=== PATIENT | female | born 1935 | race Caucasian/White ===

== ENCOUNTER 2017-02-03 19:46 | Inpatient (IN) | payer MEDICARE, MEDICAID ==
--- NOTE | 2017-02-03 21:30 | ED.PDOC ---
History of Present Illness - General Chief Complaint: Problem Stated Complaint: UTI Time Seen by Provider: 02/03/17 20:06 Source: patient, RN notes reviewed, Vital Signs reviewed Exam Limitations: no limitations - History of Present Illness Timing/Duration: 24 hours Severity: moderate Improving Factors: nothing Worsening Factors: nothing Associated Symptoms: fever/chills - pt reports recently treated for uti. states that feels similar and has frequency. has had decrease urine output, loss of appetite, malaise, nausea/vomiting Allergies/Adverse Reactions: Allergies NO KNOWN ALLERGY Allergy (Verified 02/03/17 20:44) Review of Systems - Review of Systems Constitutional: States: chills, malaise EENTM: Denies: ear pain, nose pain, throat pain, mouth pain Respiratory: Denies: cough, short of breath, wheezing Cardiology: Denies: chest pain, edema, palpitations, syncope Gastrointestinal/Abdominal: States: abdominal pain, nausea. Denies: constipation, diarrhea Genitourinary: States: dysuria, frequency, pain Musculoskeletal: Denies: joint pain, joint swelling, muscle pain, muscle stiffness Skin: Denies: no symptoms reported Neurological: Denies: no symptoms reported Endocrine: Denies: no symptoms reported Hematologic/Lymphatic: Denies: no symptoms reported Past Medical History (General) - Patient Medical History Hx Seizures: No Hx Stroke: Yes Hx Dementia: No Hx Asthma: Yes Hx of COPD: No Hx Cardiac Disorders: Yes Hx Congestive Heart Failure: Yes Hx Pacemaker: No Hx Hypertension: Yes Hx Thyroid Disease: No Hx Diabetes: Yes Hx Gastroesophageal Reflux: Yes Hx Renal Disease: No Hx Cancer: Yes Hx of HIV: No Hx Hepatitis C: No Hx MRSA: No Surgical History: Hysterectomy - Vaccination History Hx Tetanus, Diphtheria Vaccination: No Hx Influenza Vaccination: No Hx Pneumococcal Vaccination: No - Social History Hx Tobacco Use: No Hx Alcohol Use: No Hx Substance Use: No Hx Substance Use Treatment: No Hx Depression: No - Activities of Daily Living Half-Way/Assisted Living (if applicable):: [facility] (if applicable):: None - Female History Patient is a Female of Child Bearing Age (10 -59 yrs old): No Hx Last Menstrual Period: 02/03/17 - Triage Comment ED Triage Comment: Presents to ER via [facility] from [facility]--c/o dysuria at home Family Medical History - Family History Mother Living Status: Physical Exam - Physical Exam General Appearance: Alert, Anxious Ears, Nose, Throat: hearing grossly normal, other - dry membranes Neck: non-tender, full range of motion, supple Respiratory: chest non-tender, lungs clear, normal breath sounds, no respiratory distress, no accessory muscle use Cardiovascular/Chest: normal peripheral pulses, regular rate, rhythm Gastrointestinal/Abdominal: normal bowel sounds, non tender, soft Back Exam: normal inspection Extremity: normal range of motion, non-tender Neurologic: no motor/sensory deficits, alert Skin Exam: other - poor skin turgur, pallor Lymphatic: no adenopathy Progress - Progress Progress: 02/03/17 21:38 02/03/17 20:50 URINALYSIS Stat Laboratory Results WBC 6.1 K/mm3 (4.8-10.8) 02/03/17 21:02 RBC 3.95 M/mm3 (4.20-5.40) L 02/03/17 21:02 Hgb 12.7 gm/dL (12.0-16.0) 02/03/17 21:02 Hct 38.2 % (36.0-47.0) 02/03/17 21:02 MCV 96.7 fl (81.0-99.0) 02/03/17 21: MCH 32.1 pg (27.0-31.0) H 02/03/17 21:02 MCHC 33.2 g/dL (33.0-37.0) 02/03/17 21:02 RDW 14.1 % (11.5-14.5) 02/03/17 21:02 Plt Count 190 K/mm3 (130-400) 02/03/17 21:02 MPV 8.0 fl (7.40-10.4) 02/03/17 21:02 Absolute Neuts (auto) 3.40 K/uL (1.8-6.8) 02/03/17 21:02 Absolute Lymphs (auto) 1.70 K/uL (1.0-3.4) 02/03/17 21: Absolute Monos (auto) 0.80 K/uL (0.2-0.8) 02/03/17 21: Absolute Eos (auto) 0.20 K/uL (0.0-0.4) 02/03/17 21:02 Absolute Basos (auto) 0.00 K/uL (0.0-0.1) 02/03/17 21:02 Neutrophils % 55.3 % (42.0-78.0) 02/03/17 21:02 Lymphocytes % 28.6 % (20.0-50.0) 02/03/17 21: Monocytes % 12.8 % (2.0-9.0) H 02/03/17 21:02 Eosinophils % 2.6 % (1.0-5.0) 02/03/17 21: Basophils % 0.7 % (0.0-2.0) 02/03/17 21:02 Sodium 132 mmol/L (135-145) L 02/03/17 21:02 Potassium 5.1 mmol/L (3.6-5.0) H 02/03/17 21:02 Chloride 94 mmol/L (101-111) L 02/03/17 21:02 Carbon Dioxide 30 mmol/L (21-31) 02/03/17 21:02 Anion Gap 13.1 (12-18) 02/03/17 21:02 BUN 50 mg/dL (7-18) H 02/03/17 21:02 Creatinine 2.68 mg/dL (0.6-1.3) H 02/03/17 21:02 BUN/Creatinine Ratio 18.7 (10-20) 02/03/17 21:02 Random Glucose 131 mg/dL (70-105) H 02/03/17 21:02 Serum Osmolality 279.7 mOsm/L (275-295) 02/03/17 21:02 Calcium 8.7 mg/dL (8.4-10.2) 02/03/17 21:02 Total Bilirubin 0.3 mg/dL (0.2-1.0) 02/03/17 21:02 AST 18 IU/L (10-42) 02/03/17 21:02 ALT 17 IU/L (10-60) 02/03/17 21:02 Alkaline Phosphatase 82 IU/L (42-121) 02/03/17 21:02 Troponin I 0.04 ng/mL (0.01-0.05) 02/03/17 21: Serum Total Protein 8.0 gm/dL (6.4-8.2) 02/03/17 21:02 Albumin 3.5 g/dl (3.2-5.5) 02/03/17 21:02 Globulin 4.5 gm/dL (2.3-3.5) H 02/03/17 21:02 Albumin/Globulin Ratio 0.8 (1.1-1.9) L 02/03/17 21:02 - Consult/PCP Time Called: 22:20 Consult/PCP: Dr. Jeffers Consult Reason/Comments: Discussed case / lab findings, will admit for IV abx and NS Departure - Departure Clinical Impression: Urinary tract infection, Acute renal failure, Hyperkalemia ICD-10 Supporting Text: failed outpatient treatment Time of Disposition: 22:20 Disposition: Admit Patient Condition: Fair Departure Forms: ED Discharge - Pt. Copy, Patient Portal Self Enrollment Diet: resume usual diet Activity: increase activity as tolerated Referrals: CAROL DUNCAN [Primary Care Provider] - 1-2 Weeks Decision To Admit - Decistion To Admit Decision to Admit Reason: Admit from ER Decision to Admit Date: 02/03/17 Decision to Admit Time: 22:20
[2017-02-03] MEDS ORDERED: SODIUM CHLORIDE 0.9% 500ML 500 ML IVS ONE (21:40)
[2017-02-03] MEDS ORDERED: MEROPENEM 500 MG in SODIUM CHL 0.9% 50ML MIN-BAG+ 50 ML IVPB ONE (22:18)
[2017-02-03] MEDS ORDERED: SODIUM CHL 0.9% 50ML MIN-BAG+ 50 ML IVPB ONE (22:37)
[2017-02-03] MEDS ORDERED: MEROPENEM 500 MG VIAL IVPB ONE (22:38)
[2017-02-03] MEDS ORDERED: MAGNESIUM HYDROXIDE 30 ML UD PO PRN (22:48)
[2017-02-03] MEDS ORDERED: SODIUM CHLORIDE 0.9% (FLUSH) 10 ML SYG IV PRN (22:48)
[2017-02-03] MEDS ORDERED: IV SET AND CAP CHANGE INJ INJ SCH (23:00)
--- NOTE | 2017-02-03 23:10 | HP ---
HISTORY OF PRESENT ILLNESS: This 81-year-old, white female is a resident of [facility]. She is referred from the senior care to the Emergency Room because of altered level of consciousness with associated fever, chills, burning on urination, abdominal pain especially right lower quadrant and not eating for the last three days. Increasing malaise and burning on urination is similar to previous urinary tract infections that the patient is in fact currently being treated for with Macrodantin. In the Emergency Room, she was found to have a very significantly infected urine with cultures obtained. She was found to have lactic acidosis and is admitted to the hospital specifically to assist with maintenance of renal function, to lower the potassium and to prevent the underlying condition from worsening. PAST MEDICAL HISTORY: 1. Hypertension. 2. Myocardial infarction. 3. Skin cancers removed from the left shoulder area. 4. Now with recurring urinary tract infections. She apparently has been treated in a [facility] and was referred to another hospital for specialty care. She does not remember the name of either of the hospitals, so our medical records department will endeavor to try to find some summations of these visits so that we will more thoroughly an adequately understand the problems she is currently facing. PAST SURGICAL HISTORY: 1. Cholecystectomy. 2. Herniorrhaphy. 3. Hysterectomy. 4. She has had five children. CURRENT MEDICATIONS: Please refer to the list medicines as compiled by the nurse, which has been verified as home medications. ALLERGIES: NONE KNOWN. FAMILY HISTORY: Positive for diabetes, cancer, and coronary artery disease. 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 She stopped smoking about 25 years ago. REVIEW OF SYSTEMS: GENERAL: She has had some fairly significant weight changes in the past. Her maximum weight was 370 pounds and more recently, she states she was down to 302 pounds. Her attempts to lose weight are necessary to allow her to increase her activity level. She has been wheelchair bound now for many months, being unable to walk because her left knee hurts and has a tendency to give out and cause her to fall, which would be serious. Low grade fever and chills also present according to the patient even though no specific fever was documented by the senior care, again, according to the patient. HEENT: Vision and hearing are fair. LUNGS: Marked exertional dyspnea is present even on minimal exertion. No significant hemoptysis. CARDIOVASCULAR: Some chest discomforts. No significant palpitations. GASTROINTESTINAL: Nausea and more recently with some vomiting. No blood in the emesis or in the bowel movements. Decreased appetite and she says she has not eaten any food for three days. Her gallbladder has been removed. GENITOURINARY: Increasing burning upon urination with generalized malaise and intermittent pain, especially in the right lower quadrant which she feels could be related to her appendix, which apparently she still has. EXTREMITIES: Occasional swelling. NEUROLOGIC: Mild headaches. No focal weakness, but she is generally weak and currently wheelchair bound. PHYSICAL EXAMINATION: VITAL SIGNS: Temperature 97.1. Blood pressure 124/81. Respirations 20. Pulse oximetry 92% on room air. GENERAL: The patient is noticeably drowsy, somewhat hard to arouse. No family members are available and no phone numbers to adequate reach them are present on the chart with the phone numbers listed being out of working order. When the patient does wake up, she is able to look around and answer some questions fairly knowledgeably, but tends to fall asleep even while the questioning continues. Apparently this is a little new onset of altered level of consciousness not previously appreciated. HEENT: Unremarkable. NECK: Supple. There may be a slight carotid bruit on the right. LUNGS: Diminished breath sounds. CARDIOVASCULAR: Heart tones are fairly regular without any significant murmurs. Faint gallop is noted. ABDOMEN: Obese, somewhat tender especially in the right lower quadrant and suprapubically. No masses noted. Bowel tones are diminished. No rebound tenderness. Mild epigastric tenderness also present. EXTREMITIES: Quite large. Previous history of right total knee and the left knee hurts slightly upon palpation. There is 1+ pitting edema of the lower extremities. NEUROLOGIC: No focal neurological deficits, but the patient is unable to fully ambulate or to care for herself and requires pretty maximal assist at this time on her admission in order to get from a chair to the bed. Her weight is recorded as 139.3 kg. LABORATORY: White count 6,100, hemoglobin 12.7. Chemistries show sodium low at 132, glucose 131, potassium elevated at 5.1, CO2 30, BUN 50, creatinine 2.68 with no previous for comparison. Liver enzymes normal. Troponin 0.04. Lactic acid 2.6 and elevated. Urinalysis smells and is very suggestive of infection with nitrites positive, pyuria and 4+ bacteruria present. Urine cultures sent to the lab. Chest x-ray is to be performed and pending. ASSESSMENT: 1. Acute altered level of consciousness. 2. Significant chronic urinary tract infection, recurrent, having failed outpatient therapy with previous hospitalizations and records not available at this time with the patient started on meropenem pending culture results. 3. Nausea and vomiting, probably related to the underlying lactic acidosis and significant urinary tract infection, yet the possibility of peptic gastritis or other etiologies must be considered. 4. Abdominal pain, especially in the right lower quadrant, possibility of renal stones and if infected resulting in significant chronic recurring infections. 5. Moderate dehydration with the patient not able to eat or drink much for the last three days. 6. History of hypertension. 7. Vaginal candidiasis, treatment to be started with Diflucan. PLAN: The patient is admitted to the hospital for parenteral antibiotic therapy , IV hydration. We will endeavor to have medical records assist in getting old records so that we will be able to know about the problems that she has had in the recent past in [place]. She may eventually benefit by being seen in consultation with urologist, Dr. Lorenzo, next here on 02/10/17. #[id number] [facility]
[2017-02-04] MEDS: LEVALBUTEROL NEBS 0.63 MG/3 ML VIAL INH SCH ×4 (00:10→23:30)
[2017-02-04] MEDS: SODIUM CHLORIDE 0.9% 1000ML 1,000 ML IVS PRN ×2 (03:09→14:51)
[2017-02-04] MEDS: OMEPRAZOLE CAP 20 MG CAP PO SCH (06:22)
--- NOTE | 2017-02-04 07:10 | RAD ---
EXAM DESCRIPTION: Chest,1 View CLINICAL HISTORY: fever, weakness, COMPARISON: None. FINDINGS: Single frontal view of the chest. Cardiomegaly. Low lung volumes. Bilateral perihilar opacities. No consolidation, pneumothorax, or pleural effusion. Degenerative change of the glenohumeral joints. Upper abdominal soft tissues are unremarkable. IMPRESSION: 1. Bilateral perihilar opacities may be related to low lung volumes and atelectasis however pulmonary vascular congestion could produce a similar appearance. Continued follow-up recommended. 2. No definite pneumonic process identified. Electronically signed by: Kayden Holland 02/04/2017 7:09 AM TECHNICIAN PREVENTATIVE MEDICINE
[2017-02-04] MEDS ORDERED: MEROPENEM 500 MG VIAL IVPB ONE ×2 (08:52→20:37)
[2017-02-04] MEDS ORDERED: SODIUM CHL 0.9% 50ML MIN-BAG+ 50 ML IVPB ONE ×2 (08:53→20:37)
[2017-02-04] MEDS: ENALAPRIL MALEATE 5 MG TAB PO SCH (09:30)
[2017-02-04] MEDS: GABAPENTIN 100 MG CAP PO SCH ×3 (09:30→20:44)
[2017-02-04] MEDS: METOPROLOL TARTRATE 50 MG TAB PO SCH ×2 (09:30→16:02)
[2017-02-04] MEDS: MEROPENEM 500 MG in SODIUM CHL 0.9% 50ML MIN-BAG+ 50 ML IVPB SCH ×2 (09:31→21:39)
[2017-02-04] MEDS: BIFIDOBACTERIUM INFANTIS 4 MG CAP PO SCH ×2 (12:06→20:44)
[2017-02-04] MEDS: FLUCONAZOLE 100 MG TAB PO SCH (12:06)
--- NOTE | 2017-02-04 12:09 | CT ---
EXAM DESCRIPTION: Abdoment/Pelvis w/o Contrast CLINICAL HISTORY: 81 years, Female, RLQ abd pain, UTI-recurrent COMPARISON: None. TECHNIQUE: CT of the abdomen and pelvis is performed according to our non contrast protocol. FINDINGS: The lung bases are clear. Liver, spleen, and pancreas are unremarkable. The right kidney is unremarkable. The left kidney is unremarkable. There is no lymphadenopathy, inflammation, or free fluid observed. IMPRESSION: 1. Normal This exam was performed according to our departmental dose-optimization program, which includes automated exposure control, adjustment of the mA and/or kV according to patient size and/or use of iterative reconstruction technique. Electronically signed by: Mustapha Goins MD 02/04/2017 12:08 PM [employer]
--- NOTE | 2017-02-04 12:43 | PCM.CORE ---
Physician DVT/VTE - Nurse DVT Assessment & Total Each Risk Factor Represents 3 Points: Age over 75 years, Medical PT with Hx of IL, CHF, Severe infection/sepsis Each Risk Factor Represents 1 Point: Medical PT at Bed Rest Each Risk Factor is 1 Point: Obesity (BMI >25) DVT Assessment Score: 8 - 5 or more Very High Risk Treatments: Sequential Compression Device Pharmacological: Enoxaparin 40mg SQ Daily
[2017-02-04] MEDS ORDERED: ENOXAPARIN SODIUM 40 MG/0.4 ML SYG SUBCU SCH (13:00)
--- NOTE | 2017-02-04 13:07 | PN ---
DATE: 02/04/17 SUBJECTIVE: The patient is still very lethargic and sleepy, but is able to be aroused to a little better extent than last evening. She is able to answer questions fairly nicely though still somewhat tending to fall asleep during the questioning. She states she feels a little bit better today compared to last evening. She is trying to tolerate some food and will continue with a select diet. Still very weak and afraid of walking because of her left leg giving out and x-rays pending. OBJECTIVE: VITAL SIGNS: See vital signs. LUNGS: Generally clear. HEART: Tones are distant. ABDOMEN: Very large and obese. Still tenderness located in the right lower quadrant and right upper quadrant and suprapubically. LABORATORY: Urine culture does reveal growth, but it is very light at this time and will require another day to help delineate the species and sensitivities. ASSESSMENT: 1. Acute altered level of consciousness. 2. Significant chronic urinary tract infection, recurrent, having failed outpatient therapy with previous hospitalizations and records not available at this time with the patient started on meropenem pending culture results. 3. Nausea and vomiting, probably related to the underlying lactic acidosis and significant urinary tract infection, yet the possibility of peptic gastritis or other etiologies must be considered. 4. Abdominal pain, especially in the right lower quadrant, possibility of renal stones and if infected resulting in significant chronic recurring infections. 5. Moderate dehydration with the patient not able to eat or drink much for the last three days. 6. History of hypertension. 7. Vaginal candidiasis, treatment to be started with Diflucan. PLAN: Awaiting further information on the [facility] [place]. We will try to contact her primary care physician, who is listed as Dr. Wilton Carey. Continue with the meropenem awaiting culture results. May benefit from urological intervention after discharge back to [facility] and will need to be continued on some oral therapy to cover the current organisms when available, hopefully by tomorrow morning on culture and sensitivity. Continue with the Diflucan at the present time. On Align therapy. Await occult guaiac tests. Await left knee x-ray. Physical therapy to evaluate for safety of ambulation. #[id number] [facility]
--- NOTE | 2017-02-04 14:09 | RAD ---
EXAM DESCRIPTION: Knee,Left 2 or More Views CLINICAL HISTORY: [id number] female with left knee pain. COMPARISON: None FINDINGS: Frontal and lateral views of the left knee. Complete tricompartment joint space loss is present with subchondral sclerosis and cystic change. Large marginal osteophyte formation. No acute fractures demonstrated. No gross soft tissue findings. IMPRESSION: End-stage osteoarthritis of the left knee. Electronically signed by: Adiel Medina MD 02/04/2017 2:08 PM [facility]
[2017-02-04] MEDS: ACETAMINOPHEN 325 MG TAB PO PRN (17:45)
[2017-02-04] MEDS: MONTELUKAST 10 MG TAB PO SCH (20:44)
[2017-02-04] MEDS: MIRTAZAPINE 15 MG TAB PO SCH (20:44)
[2017-02-05] MEDS: SODIUM CHLORIDE 0.9% 1000ML 1,000 ML IVS PRN (02:39)
[2017-02-05] MEDS: ACETAMINOPHEN 325 MG TAB PO PRN (04:56)
[2017-02-05] MEDS: OMEPRAZOLE CAP 20 MG CAP PO SCH (06:23)
[2017-02-05] MEDS ORDERED: ENOXAPARIN SODIUM 30 MG/0.3 ML SYG SUBCU ONE (07:00)
[2017-02-05] MEDS ORDERED: FLUoxetine HCL 20 MG CAP ONE (07:00)
[2017-02-05] MEDS: LEVALBUTEROL NEBS 0.63 MG/3 ML VIAL INH SCH ×3 (07:27→23:21)
[2017-02-05] MEDS: METOPROLOL TARTRATE 50 MG TAB PO SCH ×3 (07:40→16:53)
[2017-02-05] MEDS: FLUoxetine HCL 20 MG CAP PO SCH (08:25)
[2017-02-05] MEDS: ENALAPRIL MALEATE 5 MG TAB PO SCH (08:25)
[2017-02-05] MEDS: BIFIDOBACTERIUM INFANTIS 4 MG CAP PO SCH ×2 (08:26→20:46)
[2017-02-05] MEDS: ENOXAPARIN SODIUM 30 MG/0.3 ML SYG SUBCU SCH (08:26)
[2017-02-05] MEDS: GABAPENTIN 100 MG CAP PO SCH ×3 (08:26→20:46)
[2017-02-05] MEDS: FLUCONAZOLE 100 MG TAB PO SCH (08:26)
[2017-02-05] MEDS ORDERED: ENOXAPARIN SODIUM 40 MG/0.4 ML SYG SUBCU SCH (09:00)
[2017-02-05] MEDS ORDERED: SODIUM CHL 0.9% 50ML MIN-BAG+ 50 ML IVPB ONE ×2 (09:17→20:03)
[2017-02-05] MEDS ORDERED: MEROPENEM 500 MG VIAL IVPB ONE ×2 (09:18→20:04)
[2017-02-05] MEDS: MEROPENEM 500 MG in SODIUM CHL 0.9% 50ML MIN-BAG+ 50 ML IVPB SCH ×2 (09:33→21:34)
[2017-02-05] MEDS: SODIUM CHLORIDE 0.9% (FLUSH) 10 ML SYG IV SCH ×2 (12:32→20:46)
--- NOTE | 2017-02-05 13:26 | PN ---
SUPERVISING PHYSICIAN: Brando Myers MD DATE: 02/05/17 SUBJECTIVE: The patient is lying in bed asleep. She awakens easily. She has no complaints of shortness of breath, nausea, vomiting, diarrhea, chest pain or abdominal pain. She feels like she is getting better. OBJECTIVE: VITAL SIGNS: Afebrile. Heart rate 76. Blood pressure 102/48. Respiratory rate 18. O2 saturation 93%. LUNGS: Essentially clear to auscultation bilaterally, but somewhat diminished at the bases. CARDIAC: Regular rate and rhythm. ABDOMEN: Soft, nondistended, nontender. Bowel sounds are positive. EXTREMITIES: No cyanosis, clubbing or edema. NEUROLOGIC: She is somewhat lethargic, but answers questions appropriately. LABORATORY: WBC 4.6, hemoglobin 12.3, hematocrit 37.1. Sodium 133, potassium 5 , chloride 98, carbon dioxide 29, BUN 50, creatinine 2.50, glucose 110, lactic acid 1.2. Preliminary urine culture shows gram negative rods. CT scan of the abdomen and pelvis per radiologic interpretation shows a normal exam. All other labs and films have been reviewed via the EMR. ASSESSMENT: 1. Significant chronic urinary tract infection, recurrent, having failed outpatient therapy with previous hospitalizations in the past and records showing her having a significant resistance, presently on meropenem and cultures showing gram negative rods initially. 2. Acute alerted level of consciousness, most likely due to #1. 3. Nausea and vomiting, now resolved. 4. Abdominal pain, especially in the right lower quadrant, with a negative abdominopelvic CT scan. 5. Moderate dehydration, resolved. 6. History of hypertension. 7. Vaginal candidiasis, presently on Diflucan. 8. Renal insufficiency with a creatinine on admission of 2.68 that is now improved to 2.5. PLAN: We will continue present supportive care. I have discontinue her IV fluids. We will most likely need a referral to Dr. Lorenzo, urology, after discharge. We will continue to await her cultures with sensitivities and change antibiotics as needed. Hopefully, she can be discharged in the next day or two back to [facility] after appropriate oral antibiotic selection. Otherwise, we will continue to monitor the patient closely and follow as needed. Dr. Myers is the collaborating physician and available for consultation. #[id number] [facility]
[2017-02-05] MEDS ORDERED: CALCIUM CARBONATE (ANTACID) 500 MG CHEWABLE TAB PO ONE ×2 (17:54→17:55)
[2017-02-05] MEDS: MONTELUKAST 10 MG TAB PO SCH (20:46)
[2017-02-05] MEDS: MIRTAZAPINE 15 MG TAB PO SCH (20:46)
[2017-02-06] MEDS: OMEPRAZOLE CAP 20 MG CAP PO SCH (06:01)
[2017-02-06] MEDS: METOPROLOL TARTRATE 50 MG TAB PO SCH (07:57)
[2017-02-06] MEDS: LEVALBUTEROL NEBS 0.63 MG/3 ML VIAL INH SCH (08:37)
[2017-02-06] MEDS: BIFIDOBACTERIUM INFANTIS 4 MG CAP PO SCH (08:54)
[2017-02-06] MEDS: FLUCONAZOLE 100 MG TAB PO SCH (08:55)
[2017-02-06] MEDS: GABAPENTIN 100 MG CAP PO SCH (08:55)
[2017-02-06] MEDS: ENOXAPARIN SODIUM 30 MG/0.3 ML SYG SUBCU SCH (08:55)
[2017-02-06] MEDS: FLUoxetine HCL 20 MG CAP PO SCH (08:55)
[2017-02-06] MEDS: SODIUM CHLORIDE 0.9% (FLUSH) 10 ML SYG IV SCH (08:56)
[2017-02-06] MEDS: ENALAPRIL MALEATE 5 MG TAB PO SCH (08:57)
[2017-02-06] MEDS ORDERED: NYSTATIN POWDER 15GM BTTL TOP SCH (09:00)
[2017-02-06] MEDS ORDERED: SODIUM CHL 0.9% 50ML MIN-BAG+ 50 ML IVPB ONE (10:34)
[2017-02-06] MEDS ORDERED: MEROPENEM 500 MG VIAL IVPB ONE (10:35)
[2017-02-06] MEDS: MEROPENEM 500 MG in SODIUM CHL 0.9% 50ML MIN-BAG+ 50 ML IVPB SCH (10:36)
--- NOTE | 2017-02-06 18:48 | DS ---
SUPERVISING PHYSICIAN: Brando Myers M.D. DISCHARGE DIAGNOSIS: 1. Significant chronic urinary tract infection, recurrent, having failed outpatient therapy with previous hospitalizations in the past and records showing her having a significant resistance, presently on meropenem and cultures showing gram negative rods initially. 2. Acute alerted level of consciousness, most likely due to #1. 3. Nausea and vomiting, now resolved. 4. Abdominal pain, especially in the right lower quadrant, with a negative abdominopelvic CT scan. 5. Moderate dehydration, resolved. 6. History of hypertension. 7. Vaginal candidiasis, presently on Diflucan. 8. Renal insufficiency with a creatinine on admission of 2.68 that is now improved to 2.5. HISTORY OF PRESENT ILLNESS: This is an 81 year-old female patient who is a resident of [facility]. She came to the Emergency Room due to altered level of consciousness and associated fever, chills, burning on urination and abdominal pain especially in the right lower quadrant, and anorexia for 3 days. She had increasing malaise and burning on urination similar to previous urinary tract infection and the patient had in fact been started on Macrodantin. She had a urinalysis in the Emergency Room and cultures were obtained. She was also found to have some lactic acidosis and was admitted to the hospital specifically to assist with maintenance of renal function to lower her potassium and to treat the urinary tract infection. HOSPITAL COURSE: She was given IV hydration as well as started on Meropenem. Her home medications were restarted. Her CBC stabilized and her creatinine started at 2.68 and is now 2.4. Her preliminary urine culture showed gram- negative rods and she continued on Merrem. Her vital signs are stable and she will be discharged to [facility] today. We will change her medications as needed once her sensitivities have resulted. DISCHARGE PLAN: The patient will be discharged to [facility]. She will be sent home on Cipro twice daily for 7 days until the sensitivities are returned on her urine culture and we will change her medications as needed. She is to resume her previous medications. It would be beneficial to get her prior medical records from [place] if she should need hospitalization in the future. She is to resume her previous activity as well as her previous diet. She is to return to the hospital for any further problems or complications. DISCHARGE MEDICATIONS: 1. Clonazepam. 2. Cranberry extract. 3. Gabapentin. 4. Enalapril. 5. [place]. 6. Ibuprofen. 7. Furosemide. 8. Metoprolol. 9. Pantoprazole. 10. Potassium chloride. 11. Remeron. 12. Acetaminophen. 13. Singulair. 14. Zantac. 15. Prozac. 16. Align. 17. Ciprofloxacin. 18. Nystatin powder. Dr. Myers is the collaborating physician available for consultation. #[id number] [facility]
[2017-02-06 18:52] VITALS: BP 132/74; TEMP 98.3; O2SAT 94
== END 2017-02-06 15:00 | DRG 690 ==
LOC: ER 19:46 → OBSVTOIN 23:09 → MS 23:09
PROVIDERS: ADMIT Emergency Medicine; ATTEND Nurse Practitioner Acute Care
DX: N39.0 Urinary tract infection, site not specified (principal); N17.9 Acute kidney failure, unspecified; E87.2 Acidosis; B96.89 Other specified bacterial agents as the cause of diseases classified elsewhere; E86.0 Dehydration; R10.31 Right lower quadrant pain; B37.3 Candidiasis of vulva and vagina; E87.5 Hyperkalemia; M17.12 Unilateral primary osteoarthritis, left knee; I10 Essential (primary) hypertension; I25.2 Old myocardial infarction; Z79.899 Other long term (current) drug therapy; Z85.828 Personal history of other malignant neoplasm of skin; Z87.891 Personal history of nicotine dependence